=== PATIENT | male | born 1985 | race Caucasian/White ===

== ENCOUNTER 2016-12-27 01:32 | Emergency (ER) | payer SELFPAY ==
[~2016-12-27] VITALS: Ht 170.2 cm; Wt 56.7 kg
[2016-12-27] MEDS ORDERED: TDAP [DIPH/PERTUSSIS/TET] 0.5 ML VIAL IM ONE ×2 (01:47→02:00)
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
--- NOTE | 2016-12-27 02:16 | NUR ---
PATIENT TO CT SCAN.
--- NOTE | 2016-12-27 02:30 | NUR ---
BACK FROM CT.
--- NOTE | 2016-12-27 03:33 | NUR ---
DR IVERSON AT BEDSIDE TO SUTURE LAC.
[2016-12-27] MEDS ORDERED: LORAZEPAM INJ 2 MG/ML VIAL ONE (04:29)
[2016-12-27] MEDS ORDERED: LORAZEPAM INJ 2 MG/ML VIAL IM ONE (04:30)
[2016-12-27 05:49] LABS: BASOPHILS % (AUTO) 0.4 % (0.0-2.0); EOSINOPHILS % (AUTO) 0.4 % (0.0-6.0); HEMATOCRIT 44 % (39-51); HEMOGLOBIN 14.8 g/dL (13.5-17.5); LYMPHOCYTES # (AUTO) 1.1 /CMM (0.8-4.8); MEAN CORPUSCULAR HEMOGLOBIN 30 PG (26.0-33.0); MEAN CORPUSCULAR HGB CONC 34 g/dl (31.0-36.0); MEAN CORPUSCULAR VOLUME 88 fL (80-96); MONOCYTES # (AUTO) 0.3 /CMM (0.1-1.30); NEUTROPHILS # (AUTO) 6.1 /CMM (1.8-8.9); NEUTROPHILS % (AUTO) 80.2 % (43.0-81.0); PLATELET COUNT (AUTO) 308 /CMM (150-450); RDW COEFFICIENT OF VARIATION 13.7 (11.5-15.0); RED BLOOD CELL COUNT(AUTO) 4.97 MIL/uL (4.5-6.0); WHITE BLOOD COUNT (AUTO) 7.6 K/uL (4.3-11.0)
[2016-12-27 06:00] LABS: CALCIUM, SERUM 8.4 mg/dL (8.5-10.1); CREATININE 0.7 mg/dL (0.6-1.3); POTASSIUM 3.4 mmol/L (3.5-5.1)
--- NOTE | 2016-12-27 07:15 | NUR ---
RECEIVED PATIENT IN STABLE CONDITION, WILL CONTINUE TO MONITOR.
[2016-12-27 11:52] VITALS: BP 138/69
--- NOTE | 2016-12-27 11:52 | NUR ---
Patient discharged to home in stable condition. Written and verbal after care instructions given. Patient verbalizes understanding of instruction.
--- NOTE | 2016-12-27 11:56 | NUR ---
PATIENT LEFT WITHOUT SIGNING EXIT CARE PAPERWORK
== END 2016-12-27 11:52 | disposition home or self-care (01) ==
LOC: ER 01:34
DX: S51.811A Laceration without foreign body of right forearm, initial encounter (principal); F10.129 Alcohol abuse with intoxication, unspecified; R41.82 Altered mental status, unspecified; X78.8XXA Intentional self-harm by other sharp object, initial encounter; Y93.89 Activity, other specified; Y92.89 Other specified places as the place of occurrence of the external cause; Y99.8 Other external cause status
CPT/HCPCS: 36415; 70450-TC; 80048-TC; 80305; 85025-TC; 90715; A4606; A6402; A6403; G0480; J2060; Z7610